=== PATIENT | male | born 1945 | race Caucasian/White ===

== ENCOUNTER 2019-03-06 12:12 | Day surgery (SDC) | payer MEDICARE, OTHER ==
[~2019-03-06] VITALS: Ht 182.9 cm; Wt 78.8 kg
[~2019-03-06 12:12] MED LIST: AMLO5; ASPI81CH; Adalat/Procardi20 MG PO; Cardizem Cd180 MG PO; HYDR1TAB94 PO; LABE100 PO; LEVFLO500 PO; Levaquin750 MG PO; METR500 PO; MULVITMINF; NAPR220; PARO20; PREG50; STOOL SOFTENER; TRIHYD253A PO
== END 2019-03-06 14:45 | disposition home or self-care (01) ==
LOC: ORSCSDS 12:12
PROVIDERS: Surgery
PROC: 0DBK8ZX Excision of Ascending Colon, Via Natural or Artificial Opening Endoscopic, Diagnostic (ICD-10-PCS; principal; 2019-03-06 13:30)
DX: Z12.11 Encounter for screening for malignant neoplasm of colon (principal); Z86.010 Personal history of colon polyps; D12.2 Benign neoplasm of ascending colon; K57.30 Diverticulosis of large intestine without perforation or abscess without bleeding; I10 Essential (primary) hypertension; Z79.899 Other long term (current) drug therapy
CPT/HCPCS: 88305; J2704; J7120

== ENCOUNTER 2021-02-11 08:50 | Emergency (ER) | payer MEDICARE, OTHER ==
[~2021-02-11] VITALS: Ht 180.3 cm; Wt 81.7 kg
[~2021-02-11 08:50] MED LIST changes: -AMLO5; +AMLO5 PO
[2021-02-11] MEDS ORDERED: LABE100 PO (09:05)
[2021-02-11] MEDS ORDERED: NAPROXEN500 MG PO (09:05)
[2021-02-11] MEDS ORDERED: HYDR1TAB94 PO (09:59)
== END 2021-02-11 10:08 | disposition home or self-care (01) ==
LOC: ER 08:50
DX: S83.92XA Sprain of unspecified site of left knee, initial encounter (principal); I10 Essential (primary) hypertension; Z79.899 Other long term (current) drug therapy; X58.XXXA Exposure to other specified factors, initial encounter
CPT/HCPCS: 73562-LT; 99283-25; A9270

== ENCOUNTER 2021-06-21 13:44 | Day surgery (SDC) | payer MEDICARE, OTHER ==
[~2021-06-21] VITALS: Ht 182.9 cm; Wt 75.3 kg
[~2021-06-21 13:44] MED LIST changes: +NAPROXEN500 MG PO
--- NOTE | 2021-06-21 14:48 | NUR ---
History, Chart, Medications and Allergies reviewed before start of procedure.Lungs clear T/O to Auscultation. Patient confirms NPO status and agrees with scheduled surgery. Pre-Op teaching done. Pt verbalizes understanding. PT MSSA POSITIVE, DID NOT HAVE SHOWERS WITH M CREAM OR CHLORAHEXADINE SHOWERS FOR 5 DAYS. MD NOTIFIED AND OKAYED.
--- NOTE | 2021-06-21 18:16 | NUR ---
PT ARRIVED TO THE ROOM FROM PACU AT APPROXIMATELY 1735. PT ALERT AND ORIENTED. PT'S AT BEDSIDE. PT HAS SENSATION TO BLE AND IS ABLE TO MOVE HIS FEET. PT REPORTS MILD PAIN TO HIS RIGHT KNEE. POLAR MIGUEL IN PLACE AND KNEE RESTING IN STRAIGHT POSITION. MILD HYPOTENSION, PT IS ASYMPTOMATIC, WILL CONTINUE TO MONITOR.
--- NOTE | 2021-06-22 04:38 | NUR ---
SHIFT SUMMARY: PT POD#1 FOR A RT TKA. [place] WRAP+AQUACEL DRESSING C/D/I WITH POLAR PACK IN PLACE. PAIN BEING MANAGED WITH 10MG OF OXY AND SCHEDULED TORADOL+TYLENOL. PT AMBULATING TO BATHROOM AND ONCE IN HALLWAY. VOIDING WELL AND TOLERATING PO. IV ABX COMPLETE. PLAN FOR PHYSICAL THERAPY AND POSSIBLE DISCHARGE HOME.
[2021-06-22 05:03] LABS: BASOPHILS ABSOLUTE AUTO 0.02 K/mm3 (0.00-0.23); BASOPHILS PERCENT AUTO 0 % (0-2); EOSINOPHILS ABSOLUTE AUTO 0.05 K/mm3 (0.00-0.68); EOSINOPHILS PERCENT AUTO 1 % (0-6); Hematocrit 42.9 % (37.0-53.0); Hemoglobin 14.3 g/dL (13.5-17.5); IMMATURE GRAN ABSOLUTE AUTO 0.01 K/mm3 (0.00-0.10); IMMATURE GRAN PERCENT AUTO 0 % (0-1); LYMPHOCYTES ABSOLUTE AUTO 1.19 K/mm3 (0.84-5.20); LYMPHOCYTES PERCENT AUTO 17 % (21-46); MONOCYTES ABSOLUTE AUTO 0.81 K/mm3 (0.16-1.47); MONOCYTES PERCENT AUTO 12 % (4-13); Mean Corpuscular HGB 29.9 pg (26.0-34.0); Mean Corpuscular HGB Conc 33.3 g/dL (31.5-36.5); Mean Corpuscular Volume 90 fL (80-100); Mean Platelet Volume 9.8 fL (9.1-12.4); NEUTROPHILS PERCENT AUTO 70 % (41-73); Platelet Count 237 K/mm3 (150-400); RDW Standard Deviation 39.7 fL (35.1-46.3); Red Blood Cell Count 4.79 M/mm3 (4.30-5.90); White Blood Cell Count 6.98 K/mm3 (4.00-11.30)
[2021-06-22 05:21] LABS: Anion Gap 2 mmol/L (6-16); Blood Urea Nitrogen 12 mg/dL (8-24); Bun/Creatinine Ratio 13.7 (12.0-20.0); CO2, Blood 30 mmol/L (21-32); Chloride, Blood 105 mmol/L (98-108); Creatinine, Blood 0.88 mg/dL (0.60-1.20); Glomerular Filtration Rate >60 (60-); Glucose, Blood 126 mg/dL (70-99); Potassium, Blood 3.8 mmol/L (3.5-5.5); Sodium, Blood 137 mmol/L (136-145)
[2021-06-22] MEDS ORDERED: ASPI81CH PO (08:42)
[2021-06-22] MEDS ORDERED: Percocet 5-3251 EACH PO (08:42)
--- NOTE | 2021-06-22 10:44 | NUR ---
DISCHARGE NOTE: POD 1 RIGHT TOTAL KNEE PATIENT AND WERE EDUCATED ON DISCHARGE INSTRUCTIONS. BOTH OF THEM VERBALIZED UNDERSTANDING OF INSTRUCTIONS. PAIN IS MANAGED WITH PO MEDICATIONS. THE HAS THE HARD PERSCRIPTIONS IN HER PURSE. PATIENT IS ABLE TO AMBULATE WITH FWW AND GAIT BELT. HE IS ALERT AND ORIENTED X4. DENIES NUMBNESS AND TINGLING IN ALL EXTREMITIES. PATIENT IS ABLE TO WIGGLE FINGERS AND TOES. [place] WRAP AND AQUACEL DRESSINGS ARE C/D/I. PATIENT IS DRESSED AND HAS HIS ITEMS GATHERED IN THE ROOM. PATIENT WAS WHEELCHAIRED OUT TO THE 'S CAR TO BE TAKEN HOME. IV WAS TAKEN OUT AND WAS WNL.
== END 2021-06-22 10:30 | disposition home or self-care (01) ==
LOC: ORSCMMR 13:44 → ORD 16:30 → ORSCMMR 16:30 → SURS 17:26 → ORSCMMR 06-22 10:30
PROVIDERS: Orthopaedic Surgery
PROC: 8E0YXBZ Computer Assisted Procedure of Lower Extremity (ICD-10-PCS; principal; 2021-06-21 16:30)
PROC: 0SRC0JA Replacement of Right Knee Joint with Synthetic Substitute, Uncemented, Open Approach (ICD-10-PCS; principal; 2021-06-21 16:30)
DX: M17.11 Unilateral primary osteoarthritis, right knee (principal); I10 Essential (primary) hypertension; Z79.899 Other long term (current) drug therapy
CPT/HCPCS: 36415; 73560-RT; 80048; 85025; 97110; 97116; 97162; A9270; C1776; J0171; J0690; J0735; J1885; J2370; J2405; J2704; J2795; J3010; J7120

== ENCOUNTER 2021-09-27 08:18 | Day surgery (SDC) | payer MEDICARE, OTHER ==
[~2021-09-27] VITALS: Ht 182.9 cm; Wt 74.9 kg
[~2021-09-27 08:18] MED LIST changes: +ASPI81CH PO; +Percocet 5-3251 EACH PO
--- NOTE | 2021-09-27 13:30 | NUR ---
PT ARRIVED TO UNIT FROM PACU. VSS. A&OX4. DENIES PAIN, N/V OR SOB. NUMB FROM MID THIGH DOWN. ORIENTED TO USE OF CALL LIGHT AND ROOM. PROVIDED SNACKS AND LUNCH TRAY ORDERED. IV FLUIDS INFUSING PER ORDERS. DENIES ANY NEEDS AT THIS TIME.
--- NOTE | 2021-09-27 17:47 | NUR ---
summary NO ACUTE CHANGES SINCE ARRIVING TO UNIT FROM PACU. MEDICATED PER ORDERS FOR PAIN. POLAR PACK IN PLACE. PT AMBULATED TO RESTROOM AND VOIDED. NOW SITTING IN RECLINER AND EATING DINNER. SALINE LOCKED. CALL LIGHT IN REACH.
--- NOTE | 2021-09-28 03:26 | NUR ---
SHIFT SUMMARY A/O X4. VSS. POD1 L TKA, AQUACEL AND [place] WRAP IN PLACE, C/D/I. AMBULATING WITH FWW AND GB WITH STAND BY ASSIST. VOIDING WELL AND TOLERATING PO INTAKE. PAIN MANAGED PER EMAR. WILL CONTINUE TO MONITOR AND REPORT TO ONCOMING RN.
[2021-09-28 04:30] LABS: BASOPHILS ABSOLUTE AUTO 0.01 K/mm3 (0.00-0.23); BASOPHILS PERCENT AUTO 0 % (0-2); EOSINOPHILS PERCENT AUTO 0 % (0-6); Hematocrit 39.4 % (37.0-53.0); Hemoglobin 12.8 g/dL (13.5-17.5); IMMATURE GRAN ABSOLUTE AUTO 0.01 K/mm3 (0.00-0.10); IMMATURE GRAN PERCENT AUTO 0 % (0-1); LYMPHOCYTES ABSOLUTE AUTO 0.83 K/mm3 (0.84-5.20); LYMPHOCYTES PERCENT AUTO 10 % (21-46); MONOCYTES ABSOLUTE AUTO 0.59 K/mm3 (0.16-1.47); MONOCYTES PERCENT AUTO 7 % (4-13); Mean Corpuscular HGB 28.1 pg (26.0-34.0); Mean Corpuscular HGB Conc 32.5 g/dL (31.5-36.5); Mean Corpuscular Volume 87 fL (80-100); NEUTROPHILS ABSOLUTE AUTO 7.08 K/mm3 (1.96-9.15); NEUTROPHILS PERCENT AUTO 83 % (41-73); Platelet Count 236 K/mm3 (150-400); RDW Coefficient Variation 13.5 % (11.7-14.2); RDW Standard Deviation 42.5 fL (35.1-46.3); Red Blood Cell Count 4.55 M/mm3 (4.30-5.90); White Blood Cell Count 8.52 K/mm3 (4.00-11.30)
[2021-09-28 04:45] LABS: Anion Gap 6 mmol/L (6-16); Blood Urea Nitrogen 20 mg/dL (8-24); Bun/Creatinine Ratio 22.3 (12.0-20.0); CO2, Blood 26 mmol/L (21-32); Calcium, Blood 8.8 mg/dL (8.5-10.1); Chloride, Blood 105 mmol/L (98-108); Glomerular Filtration Rate >60 (60-); Glucose, Blood 152 mg/dL (70-99); Potassium, Blood 4.3 mmol/L (3.5-5.5); Sodium, Blood 137 mmol/L (136-145)
[2021-09-28] MEDS ORDERED: ASPI81CH PO (07:45)
[2021-09-28] MEDS ORDERED: Percocet 5-3251 EACH PO (07:45)
--- NOTE | 2021-09-28 10:50 | NUR ---
DISCHARGE NOTE: PATIENT WAS EDUCATED ON DISCHARGE INSTRUCTIONS. HE VERBALIZED UNDERSTANDING OF INSTRUCTIONS. IV WAS TAKEN OUT AND WNL. HARD PERSCRIPTIONS ARE IN THE INSTRUCTIONS FOLDER. PAIN IS TOLERATED WITH PO PAIN MEDICATIONS. AQUACEL AND [place] WRAP ARE C/D/I. HE IS A SBA WITH A WALKER AND GAIT BELT. HE IS ALERT AND ORIENTED X4. VS ARE WNL AND ON RA. PATIENT IS DRESSED AND HAS ITEMS GATHERED IN THE ROOM. HE IS WHEELCHAIRED OUT AND WAS PICKED UP BY HIS TO TAKE HOME.
== END 2021-09-28 10:28 | disposition home or self-care (01) ==
LOC: ORSCMMR 08:18 → ORD 09:45 → ORSCMMR 09:45 → SURS 13:09 → ORSCMMR 09-28 10:28
PROVIDERS: Orthopaedic Surgery
DX: M17.12 Unilateral primary osteoarthritis, left knee (principal); I10 Essential (primary) hypertension; Z79.899 Other long term (current) drug therapy
CPT/HCPCS: 27447; S2900; 36415; 73560-LT; 80048; 85025; 97110; 97116; 97162; A9270; C1776; J0171; J0690; J0735; J1100; J1885; J2250; J2370; J2405; J2704; J2795; J3010; J3370; J7050; J7120

== ENCOUNTER → 2022-08-02 | Outpatient (CLI) | payer MEDICARE, OTHER | LOC: LAB SHORT 15:10 → PLD 15:10 → LAB 15:10 | DX: D48.5 Neoplasm of uncertain behavior of skin (principal) | CPT/HCPCS: 88305 ==

== ENCOUNTER 2022-08-26 15:09 | Emergency (ER) | payer MEDICARE, OTHER ==
[~2022-08-26] VITALS: Ht 182.9 cm; Wt 85.7 kg
== END 2022-08-26 16:20 | disposition home or self-care (01) ==
LOC: ER 15:09
DX: H72.92 Unspecified perforation of tympanic membrane, left ear (principal); I10 Essential (primary) hypertension; Z88.8 Allergy status to other drugs, medicaments and biological substances; Z79.899 Other long term (current) drug therapy; Z79.82 Long term (current) use of aspirin
CPT/HCPCS: A9270

== ENCOUNTER → 2023-08-15 | Outpatient (CLI) | payer MEDICARE, OTHER | LOC: LAB 14:43 → LAB SHORT 14:43 | DX: D22.5 Melanocytic nevi of trunk (principal) | CPT/HCPCS: 88305 ==

== ENCOUNTER 2024-07-18 07:08 | Day surgery (SDC) | payer MEDICARE, OTHER ==
[~2024-07-18] VITALS: Ht 182.9 cm; Wt 77.0 kg
[2024-07-18] MEDS ORDERED: Lactated Ringer's 1,000 ML IV ONE ×2 (07:33→08:10)
[2024-07-18] MEDS ORDERED: propofoL 50 ML IV ONE (07:33)
--- NOTE | 2024-07-18 10:03 | NUR ---
07/18/24 1003 RAMA NERI IV SITE:R A/C L NOT HAND R NOTED IN PREOP SCREEN. END NOTE RDS
[2024-07-18 10:09] VITALS: BP 106/72
== END 2024-07-18 09:55 | disposition home or self-care (01) ==
LOC: ORSCSDS 07:08
PROVIDERS: Surgery
PROC: 0DBL8ZX Excision of Transverse Colon, Via Natural or Artificial Opening Endoscopic, Diagnostic (ICD-10-PCS; principal; 2024-07-18 08:30)
DX: Z12.11 Encounter for screening for malignant neoplasm of colon (principal); Z86.0100 Personal history of colon polyps, unspecified; D12.3 Benign neoplasm of transverse colon; K57.30 Diverticulosis of large intestine without perforation or abscess without bleeding; I10 Essential (primary) hypertension; K40.90 Unilateral inguinal hernia, without obstruction or gangrene, not specified as recurrent; Z79.899 Other long term (current) drug therapy
CPT/HCPCS: 88305; J2704; J7120